=== PATIENT | female | born 1990 | race Caucasian/White ===

== ENCOUNTER 2019-06-01 12:06 | Emergency (ER) | payer MEDICAID ==
[~2019-06-01] VITALS: Ht 165.1 cm; Wt 86.4 kg
[~2019-06-01 12:06] MED LIST: NAPR-700 PO
[2019-06-01 13:07] LABS: BASOPHILS % (AUTO) 0.3 % (0-1); EOSINOPHILS # (AUTO) 0.3 X10'3 (0-0.9); EOSINOPHILS % (AUTO) 2.6 % (0-6); HEMATOCRIT 38.9 % (35.0-45.0); HEMOGLOBIN 12.7 g/dl (12.0-16.0); LYMPHOCYTES # (AUTO) 2.2 X10'3 (1.1-4.8); LYMPHOCYTES % (AUTO) 19.5 % (21-51); MEAN CORPUSCULAR HEMOGLOBIN 24.8 PG (27.0-31.0); MEAN CORPUSCULAR HGB CONC 32.6 g/dL (33.0-36.5); MEAN CORPUSCULAR VOLUME 76.1 FL (78-98); MEAN PLATELET VOLUME 6.9 FL (7.4-10.4); MONOCYTES # (AUTO) 0.7 X10'3 (0-0.9); MONOCYTES % (AUTO) 6.2 % (2-12); NEUTROPHILS % (AUTO) 71.4 % (42-75); PLATELET COUNT 392 X10'3 (140-440); RED BLOOD COUNT 5.11 X10'6 (4.20-5.60); RED CELL DISTRIBUTION WIDTH 16.9 % (11.5-14.5); WHITE BLOOD COUNT 11.2 X10'3 (4.5-11.0)
[2019-06-01] MEDS ORDERED: ondansetron/PF 4mg/2ml inj IV ONE (13:15)
[2019-06-01] MEDS ORDERED: morphine 4 MG/ML inj SYRINge IV PRN (13:15)
[2019-06-01] MEDS ORDERED: normal saline 1000ML IV soln IVB ONE (13:15)
[2019-06-01 13:18] LABS: URINE HCG NEGATIVE (NEG)
[2019-06-01 13:21] LABS: CLARITY,URINE CLOUDY (Clear); COLOR,URINE STRAW (Yellow); GLUCOSE, URINE NEGATIVE (Neg); KETONES,URINE NEGATIVE (Neg); LEUKOCYTE ESTERASE ,URINE MODERATE (Neg); NITRITES, URINE NEGATIVE (Neg); OCCULT BLOOD,URINE TRACE-LYSED (Neg); PH,URINE 5.5 (4.8-8.0); PROTEIN,URINE NEGATIVE (Neg); UROBILINOGEN,URINE 0.2 E.U/dL (0.2-1.0)
[2019-06-01 13:22] LABS: UA COLLECTION TYPE CLN CATCH MIDSTREAM
[2019-06-01] MEDS ORDERED: iohexol 300mg/ml 100ml inj. ONE (13:22)
[2019-06-01 13:23] LABS: ALANINE AMINOTRANSFERASE 23 U/L (12-78); ALBUMIN 3.2 G/DL (3.4-5.0); ALBUMIN/GLOBULIN RATIO 0.7 (1.1-1.5); ALKALINE PHOSPHATASE 89 IU/L (46-116); ANION GAP 8 (8-16); ASPARTATE AMINO TRANSFERASE 13 U/L (10-37); BILIRUBIN,TOTAL 0.2 MG/DL (0.1-1.0); BLOOD UREA NITROGEN 10 MG/DL (7-18); BUN/CREATININE RATIO 16.1 (6.6-38.0); CALCIUM 8.9 MG/DL (8.5-10.1); CHLORIDE 107 MMOL/L (99-107); CREATININE 0.62 MG/DL (0.40-0.90); GLUCOSE 99 MG/DL (70-104); LIPASE 133 U/L (73-393); POTASSIUM 4.1 MMOL/L (3.5-5.1); SODIUM 140 MMOL/L (135-145); TOTAL CARBON DIOXIDE 24.8 MMOL/L (24-32); TOTAL PROTEIN 7.7 G/DL (6.4-8.2); eGFR > 90 ML/MIN
[2019-06-01 13:46] LABS: SQUAMOUS EPITHELIAL CELL,UR MANY /LPF (FEW)
[2019-06-01 13:48] LABS: BACTERIA,URINE 4+ /HPF (Neg); HYALINE CASTS 0-3 /LPF (NEGATIVE); MUCUS STRANDS NONE SEEN /LPF (Neg); RBC,URINE 0-2 /HPF (0-2); TRANSITIONAL EPI CELLS,URINE MODERATE /HPF; WBC,URINE 30-50 /HPF (0-4)
[2019-06-01] MEDS ORDERED: ONDA4TAB6 PO (14:06)
[2019-06-01] MEDS ORDERED: CIPR-230 PO (14:06)
[2019-06-01] MEDS ORDERED: ketorolac trometh. 30mg/ml inj. IV ONE (14:15)
[2019-06-01 14:42] VITALS: BP 157/83
== END 2019-06-01 15:10 | disposition home or self-care (01) ==
LOC: ER 12:07
DX: N39.0 Urinary tract infection, site not specified (principal); K50.90 Crohn's disease, unspecified, without complications; F12.90 Cannabis use, unspecified, uncomplicated; R19.7 Diarrhea, unspecified; Z88.2 Allergy status to sulfonamides; Z88.1 Allergy status to other antibiotic agents; Z79.899 Other long term (current) drug therapy
CPT/HCPCS: 36415; 74177; 80053; 81001; 81025; 83690; 85025; 85610; 93005; 96374; 96375; 99284; J1885; J2405; Q9967

== ENCOUNTER 2019-08-09 18:14 | Emergency (ER) | payer MEDICAID ==
[~2019-08-09] VITALS: Ht 165.1 cm; Wt 91.8 kg
[~2019-08-09 18:14] MED LIST changes: +ONDA4TAB6 PO
[2019-08-09 18:59] LABS: BASOPHILS # (AUTO) 0.1 X10'3 (0-0.2); BASOPHILS % (AUTO) 0.5 % (0-1); EOSINOPHILS # (AUTO) 0.3 X10'3 (0-0.9); EOSINOPHILS % (AUTO) 2.5 % (0-6); HEMATOCRIT 38.6 % (35.0-45.0); HEMOGLOBIN 12.7 g/dl (12.0-16.0); MEAN CORPUSCULAR HEMOGLOBIN 25.3 PG (27.0-31.0); MEAN CORPUSCULAR HGB CONC 32.9 g/dL (33.0-36.5); MEAN CORPUSCULAR VOLUME 76.7 FL (78-98); MONOCYTES # (AUTO) 0.9 X10'3 (0-0.9); MONOCYTES % (AUTO) 6.9 % (2-12); NEUTROPHILS # (AUTO) 9.1 X10'3 (1.8-7.7); NEUTROPHILS % (AUTO) 74.1 % (42-75); PLATELET COUNT 392 X10'3 (140-440); RED BLOOD COUNT 5.03 X10'6 (4.20-5.60); RED CELL DISTRIBUTION WIDTH 17.8 % (11.5-14.5); WHITE BLOOD COUNT 12.3 X10'3 (4.5-11.0)
--- NOTE | 2019-08-09 19:00 | NUR ---
PT POSITIONED FOR COMFORT. GAVE HER TWO MOISTENED AND HEATED TOWELS TO APPLY TO THE UPPER ABDOMEN FOR ITS DISCOMFORT.
--- NOTE | 2019-08-09 19:10 | NUR ---
ADVISED PT OF HTE NEED FOR A URINE SPECIAMN. EDUCATED PT THAT THE SPECIAMN NEEDS TO BE VIA CATH. PT DECLINED CATHERIZATION. INSTRUCTED PT ON HOW TO PROPERLY CLEAN FOR A CLEAN CATH SPECIMAN. SPIECIMAN SENT VIA CLEAN CATH .
[2019-08-09 19:19] LABS: ALANINE AMINOTRANSFERASE 21 U/L (12-78); ALBUMIN 3.5 G/DL (3.4-5.0); ALBUMIN/GLOBULIN RATIO 0.7 (1.1-1.5); ALKALINE PHOSPHATASE 88 IU/L (46-116); ANION GAP 8 (8-16); ASPARTATE AMINO TRANSFERASE 13 U/L (10-37); BILIRUBIN,TOTAL 0.3 MG/DL (0.1-1.0); BLOOD UREA NITROGEN 10 MG/DL (7-18); BUN/CREATININE RATIO 14.5 (6.6-38.0); CALCIUM 9.2 MG/DL (8.5-10.1); CHLORIDE 102 MMOL/L (99-107); CREATININE 0.69 MG/DL (0.40-0.90); GLUCOSE 113 MG/DL (70-104); POTASSIUM 3.9 MMOL/L (3.5-5.1); SODIUM 137 MMOL/L (135-145); TOTAL PROTEIN 8.3 G/DL (6.4-8.2); eGFR > 90 ML/MIN
[2019-08-09 19:42] LABS: URINE HCG NEGATIVE (NEG)
[2019-08-09 19:48] LABS: CLARITY,URINE CLEAR (Clear); COLOR,URINE YELLOW (Yellow); GLUCOSE, URINE NEGATIVE (Neg); KETONES,URINE NEGATIVE (Neg); LEUKOCYTE ESTERASE ,URINE NEGATIVE (Neg); NITRITES, URINE NEGATIVE (Neg); OCCULT BLOOD,URINE SMALL (Neg); PH,URINE 5.5 (4.8-8.0); PROTEIN,URINE TRACE mg/dl (Neg); UROBILINOGEN,URINE 0.2 E.U/dL (0.2-1.0)
[2019-08-09] MEDS ORDERED: ondansetron/PF 4mg/2ml inj IV ONE (19:50)
[2019-08-09 19:52] LABS: UA COLLECTION TYPE CLN CATCH MIDSTREAM
[2019-08-09 19:53] LABS: WBC,URINE 0-4 /HPF (0-4)
[2019-08-09 19:54] LABS: BACTERIA,URINE 2+ /HPF (Neg); CAL OXALATE CRYSTALS 3+ /HPF (NEGATIVE); FINE GRANULAR CAST 0-3 /LPF (NEGATIVE); MUCUS STRANDS FEW /LPF (Neg); SQUAMOUS EPITHELIAL CELL,UR MANY /LPF (FEW)
[2019-08-09] MEDS ORDERED: ketorolac trometh. 30mg/ml inj. IV ONE (20:10)
--- NOTE | 2019-08-09 20:37 | NUR ---
emesis x 2 episodes. total 750 out, watery brown emesis with food particles. pt to ct.
[2019-08-09] MEDS ORDERED: normal saline 1000ML IV soln IVB ONE (21:45)
[2019-08-09] MEDS ORDERED: methylPREDNISolone sod succ 125mg/2ml vial IV ONE (22:10)
[2019-08-09] MEDS ORDERED: KETO10TA2 PO (22:11)
[2019-08-09] MEDS ORDERED: PRED20TA PO (22:11)
[2019-08-09 22:42] VITALS: BP 114/75
== END 2019-08-09 23:22 | disposition home or self-care (01) ==
LOC: ER 18:15
DX: K51.90 Ulcerative colitis, unspecified, without complications (principal); R11.2 Nausea with vomiting, unspecified; F17.200 Nicotine dependence, unspecified, uncomplicated; F12.90 Cannabis use, unspecified, uncomplicated; Z98.890 Other specified postprocedural states; Z88.1 Allergy status to other antibiotic agents; Z88.2 Allergy status to sulfonamides; Z79.899 Other long term (current) drug therapy
CPT/HCPCS: 36415; 74176; 80053; 81001; 81025; 85025; 85610; 96361; 96374; 96375; 99284; J1885; J2405; J2930; J7030

== ENCOUNTER 2019-09-26 06:05 | Emergency (ER) | payer MEDICAID, OTHER ==
[~2019-09-26] VITALS: Ht 165.1 cm; Wt 84.0 kg
[~2019-09-26 06:05] MED LIST changes: +KETO10TA2 PO
[2019-09-26] MEDS ORDERED: normal saline 1000ML IV soln IVB ONE (06:35)
[2019-09-26] MEDS ORDERED: ondansetron/PF 4mg/2ml inj IV ONE (06:35)
[2019-09-26] MEDS ORDERED: morphine 4 MG/ML inj SYRINge IV PRN (06:35)
[2019-09-26 07:23] VITALS: BP 114/65
[2019-09-26 07:44] LABS: ALANINE AMINOTRANSFERASE 28 U/L (12-78); ALBUMIN 2.9 G/DL (3.4-5.0); ALBUMIN/GLOBULIN RATIO 0.7 (1.1-1.5); ALKALINE PHOSPHATASE 104 IU/L (46-116); ANION GAP 13 (8-16); ASPARTATE AMINO TRANSFERASE 56 U/L (10-37); BILIRUBIN,TOTAL 0.5 MG/DL (0.1-1.0); BLOOD UREA NITROGEN 9 MG/DL (7-18); BUN/CREATININE RATIO 12.7 (6.6-38.0); CALCIUM 8.7 MG/DL (8.5-10.1); CHLORIDE 104 MMOL/L (99-107); CREATININE 0.71 MG/DL (0.40-0.90); GLUCOSE 110 MG/DL (70-104); LIPASE 87 U/L (73-393); POTASSIUM 3.6 MMOL/L (3.5-5.1); SODIUM 138 MMOL/L (135-145); TOTAL CARBON DIOXIDE 20.9 MMOL/L (24-32); eGFR > 90 ML/MIN
[2019-09-26] MEDS ORDERED: ketorolac trometh. 30mg/ml inj. IV ONE (07:55)
[2019-09-26 08:22] LABS: BASOPHILS # (AUTO) 0.1 X10'3 (0-0.2); BASOPHILS % (AUTO) 0.6 % (0-1); EOSINOPHILS # (AUTO) 0.1 X10'3 (0-0.9); EOSINOPHILS % (AUTO) 1.1 % (0-6); HEMATOCRIT 34.7 % (35.0-45.0); HEMOGLOBIN 11.4 g/dl (12.0-16.0); LYMPHOCYTES # (AUTO) 1.3 X10'3 (1.1-4.8); LYMPHOCYTES % (AUTO) 11.4 % (21-51); MEAN CORPUSCULAR HEMOGLOBIN 26.2 PG (27.0-31.0); MEAN CORPUSCULAR VOLUME 79.3 FL (78-98); MONOCYTES # (AUTO) 0.7 X10'3 (0-0.9); MONOCYTES % (AUTO) 6.4 % (2-12); NEUTROPHILS # (AUTO) 9.2 X10'3 (1.8-7.7); NEUTROPHILS % (AUTO) 80.5 % (42-75); PLATELET COUNT 309 X10'3 (140-440); RED BLOOD COUNT 4.37 X10'6 (4.20-5.60); RED CELL DISTRIBUTION WIDTH 17.9 % (11.5-14.5); WHITE BLOOD COUNT 11.4 X10'3 (4.5-11.0)
--- NOTE | 2019-09-26 08:50 | NUR ---
PT SLEEPING WITHOUT DISTRESS. VSS.
--- NOTE | 2019-09-26 09:14 | NUR ---
PT STATES SHE STILL CANT GIVE A URINE SAMPLE.
--- NOTE | 2019-09-26 10:11 | NUR ---
notified vahid at [facility] pt eloped with iv still in place.
== END 2019-09-26 10:14 | disposition left against medical advice (07) ==
LOC: ER 06:06
DX: K50.90 Crohn's disease, unspecified, without complications (principal); F12.90 Cannabis use, unspecified, uncomplicated; Z88.1 Allergy status to other antibiotic agents; Z79.899 Other long term (current) drug therapy; Z98.890 Other specified postprocedural states
CPT/HCPCS: 36415; 80053; 83690; 85025; 96374; 96375; 99283; J1885; J2270; J2405; J7030

== ENCOUNTER 2021-04-19 20:19 | Emergency (ER) | payer MEDICAID ==
[~2021-04-19] VITALS: Ht 165.1 cm; Wt 86.4 kg
[2021-04-19 21:04] VITALS: BP 125/82
[2021-04-19 21:49] LABS: URINE HCG NEGATIVE (NEG)
[2021-04-19 21:50] LABS: CLARITY,URINE CLOUDY (Clear); COLOR,URINE RED (Yellow)
[2021-04-19 21:56] LABS: UA COLLECTION TYPE CLN CATCH MIDSTREAM
[2021-04-19 21:58] LABS: BACTERIA,URINE FEW /HPF (Neg); RBC,URINE TNTC /HPF (0-2); SQUAMOUS EPITHELIAL CELL,UR FEW /LPF (FEW)
[2021-04-19] MEDS ORDERED: levoFLOXACIN-Levaquin 500mg/D5 100 ML IV ONE (22:15)
[2021-04-19] MEDS ORDERED: normal saline 1000ml 1,000 ML IV ONE (22:15)
[2021-04-19] MEDS ORDERED: ketorolac trometh. 30mg/ml inj. IV ONE (22:20)
[2021-04-19 22:54] LABS: BASOPHILS % (AUTO) 0.3 % (0-1); EOSINOPHILS # (AUTO) 0.3 X10'3 (0-0.9); EOSINOPHILS % (AUTO) 1.9 % (0-6); HEMATOCRIT 33.3 % (35.0-45.0); LYMPHOCYTES # (AUTO) 1.8 X10'3 (1.1-4.8); LYMPHOCYTES % (AUTO) 13.7 % (21-51); MEAN CORPUSCULAR HEMOGLOBIN 24.1 PG (27.0-31.0); MEAN CORPUSCULAR HGB CONC 32.9 g/dL (33.0-36.5); MEAN CORPUSCULAR VOLUME 73.4 FL (78-98); MEAN PLATELET VOLUME 6.6 FL (7.4-10.4); MONOCYTES # (AUTO) 0.6 X10'3 (0-0.9); MONOCYTES % (AUTO) 4.8 % (2-12); NEUTROPHILS # (AUTO) 10.5 X10'3 (1.8-7.7); NEUTROPHILS % (AUTO) 79.3 % (42-75); PLATELET COUNT 464 X10'3 (140-440); RED BLOOD COUNT 4.54 X10'6 (4.20-5.60); WHITE BLOOD COUNT 13.2 X10'3 (4.5-11.0)
[2021-04-19 23:05] LABS: ALANINE AMINOTRANSFERASE 9 U/L (12-78); ALBUMIN/GLOBULIN RATIO 0.6 (1.1-1.5); ALKALINE PHOSPHATASE 74 IU/L (46-116); ANION GAP 12 (8-16); ASPARTATE AMINO TRANSFERASE 13 U/L (10-37); BILIRUBIN,TOTAL 0.4 MG/DL (0.1-1.0); BLOOD UREA NITROGEN 6 MG/DL (7-18); BUN/CREATININE RATIO 8.8 (6.6-38.0); CALCIUM 8.6 MG/DL (8.5-10.1); CHLORIDE 103 MMOL/L (99-107); CREATININE 0.68 MG/DL (0.40-0.90); GLUCOSE 96 MG/DL (70-104); POTASSIUM 3.7 MMOL/L (3.5-5.1); SODIUM 139 MMOL/L (135-145); TOTAL CARBON DIOXIDE 24.4 MMOL/L (24-32); TOTAL PROTEIN 7.7 G/DL (6.4-8.2); eGFR > 90 ML/MIN
[2021-04-19] MEDS ORDERED: LEVO500T89 PO (23:23)
[2021-04-19 23:52] LABS: ANISOCYTOSIS 2+; MICROCYTOSIS 1+; PLATELET ESTIMATE INCREASED
[2021-04-19 23:53] LABS: ELLIPTOCYTES FEW
--- NOTE | 2021-04-20 02:30 | NUR ---
Went to discharge patient, and she was not in the room. Both her and her were gone and her IV tubing was hanging from the IV pole. Unable to locate her in hospital. Call placed to both numbers listed in her demographics, but there was no answer. Charge nurse notified.
== END 2021-04-20 02:38 | disposition left against medical advice (07) ==
LOC: ER 20:22
DX: N10 Acute pyelonephritis (principal); R31.9 Hematuria, unspecified; R10.84 Generalized abdominal pain; R50.9 Fever, unspecified; F12.90 Cannabis use, unspecified, uncomplicated; Z98.890 Other specified postprocedural states; Z72.89 Other problems related to lifestyle; Z79.2 Long term (current) use of antibiotics; Z88.2 Allergy status to sulfonamides; Z79.899 Other long term (current) drug therapy
CPT/HCPCS: 36415; 74176; 80053; 81001; 81025; 85008; 85025; 87077; 87088; 87186; 96361; 96365; 96375; 99284; J1885; J1956; J7030

== ENCOUNTER 2024-01-03 23:49 | Emergency (ER) | payer MEDICAID ==
[2024-01-04 00:43] LABS: BILIRUBIN,URINE SMALL (Neg); CLARITY,URINE CLEAR (Clear); COLOR,URINE YELLOW (Yellow); GLUCOSE, URINE NEGATIVE (Neg); KETONES,URINE 15 mg/dl (Neg); LEUKOCYTE ESTERASE ,URINE NEGATIVE (Neg); NITRITES, URINE NEGATIVE (Neg); OCCULT BLOOD,URINE TRACE-INTACT (Neg); PROTEIN,URINE NEGATIVE (Neg); URINE HCG NEGATIVE (NEG)
[2024-01-04] MEDS: ondansetron/PF 4mg/2ml inj IV ONE (00:45)
[2024-01-04] MEDS: normal saline 1000ML IV soln IVB ONE (00:45)
[2024-01-04 00:46] LABS: UA COLLECTION TYPE CLN CATCH MIDSTREAM
[2024-01-04 00:48] VITALS: TEMP 98.4
[2024-01-04 00:49] LABS: BASOPHILS % (AUTO) 0.3 % (0-1); EOSINOPHILS # (AUTO) 0.1 X10'3 (0-0.9); EOSINOPHILS % (AUTO) 1.2 % (0-6); HEMATOCRIT 31.5 % (35.0-45.0); LYMPHOCYTES # (AUTO) 1.5 X10'3 (1.1-4.8); LYMPHOCYTES % (AUTO) 16.4 % (21-51); MEAN CORPUSCULAR HGB CONC 31.8 g/dL (33.0-36.5); MEAN CORPUSCULAR VOLUME 62.9 FL (78-98); MEAN PLATELET VOLUME 6.1 FL (7.4-10.4); MONOCYTES # (AUTO) 0.8 X10'3 (0-0.9); MONOCYTES % (AUTO) 8.8 % (2-12); NEUTROPHILS # (AUTO) 6.6 X10'3 (1.8-7.7); NEUTROPHILS % (AUTO) 73.3 % (42-75); PLATELET COUNT 534 X10'3 (140-440); RED BLOOD COUNT 5.01 X10'6 (4.20-5.60); RED CELL DISTRIBUTION WIDTH 20.3 % (11.5-14.5)
[2024-01-04 00:49] LABS: BACTERIA,URINE 1+ /HPF (Neg); MUCUS STRANDS MANY /LPF (Neg); SQUAMOUS EPITHELIAL CELL,UR MANY /LPF (FEW); WBC,URINE 0-4 /HPF (0-4)
[2024-01-04 00:50] LABS: TRANSITIONAL EPI CELLS,URINE FEW /HPF
[2024-01-04 00:57] LABS: URINE AMPHETAMINE SCREEN NEGATIVE (Neg); URINE BARBITUATE SCREEN NEGATIVE (Neg); URINE BENZODIAZEPINES SCREEN NEGATIVE (Neg); URINE CANNABINOID SCREEN POSITIVE (Neg); URINE COCAINE SCREEN NEGATIVE (Neg); URINE METHADONE SCREEN NEGATIVE (Neg); URINE OPIATE SCREEN NEGATIVE (Neg); URINE PHENCYCLIDINE SCREEN NEGATIVE (Neg)
[2024-01-04 01:04] LABS: ALANINE AMINOTRANSFERASE 9 U/L (12-78); ALBUMIN 2.5 G/DL (3.4-5.0); ALBUMIN/GLOBULIN RATIO 0.5 (1.1-1.5); ALKALINE PHOSPHATASE 87 IU/L (46-116); ANION GAP 11 (8-16); ASPARTATE AMINO TRANSFERASE 8 U/L (10-37); BILIRUBIN,TOTAL 0.3 MG/DL (0.1-1.0); BLOOD UREA NITROGEN 12 MG/DL (7-18); BUN/CREATININE RATIO 18.8 (10.0-20.0); CALCIUM 8.6 MG/DL (8.5-10.1); CHLORIDE 100 MMOL/L (99-107); CREATININE 0.64 MG/DL (0.40-0.90); GLUCOSE 97 MG/DL (70-104); LIPASE 17 U/L (16-77); POTASSIUM 3.7 MMOL/L (3.5-5.1); SODIUM 136 MMOL/L (135-145); TOTAL CARBON DIOXIDE 24.6 MMOL/L (24-32); TOTAL PROTEIN 7.7 G/DL (6.4-8.2); eGFR > 90 ML/MIN
[2024-01-04] MEDS: haloperidol lactate 5mg/ml inj IM ONE (01:41)
[2024-01-04] MEDS: ketorolac trometh. 30mg/ml inj. IV ONE (01:49)
[2024-01-04 01:52] VITALS: BP 105/66; PULSE 90; RESP 14; O2SAT 96
[2024-01-04 05:10] LABS: ANISOCYTOSIS 3+; ELLIPTOCYTES FEW; HYPOCHROMASIA 1+; MICROCYTOSIS 2+; PLATELET ESTIMATE INCREASED
== END 2024-01-04 02:30 | disposition home or self-care (01) ==
LOC: ER 23:49
DX: R10.84 Generalized abdominal pain (principal); R11.2 Nausea with vomiting, unspecified; Z88.1 Allergy status to other antibiotic agents; Z79.899 Other long term (current) drug therapy; Z88.2 Allergy status to sulfonamides
CPT/HCPCS: 36415; 80053; 80305; 81001; 81025; 83690; 85008; 85025; 96361; 96374; 96375; 99284; J1885; J2405; J7030; 99283